=== PATIENT | female | born 1990 | race Caucasian/White ===

== ENCOUNTER 2017-07-09 02:16 | Inpatient (IN) | payer MEDICAID, OTHER ==
[~2017-07-09] VITALS: Ht 160 cm; Wt 49.4 kg
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
[2017-07-09] MEDS ORDERED: IV NS 0.9% 1,000 ML BAG IV ONE (02:30)
[2017-07-09] MEDS ORDERED: ONDANSETRON HCL/PF 4 MG/2 ML VIAL ONE (02:36)
[2017-07-09 02:40] LABS: BASOPHILS % (AUTO) 0.7 % (0.0-2.0); EOSINOPHILS % (AUTO) 9.4 % (0.0-6.0); HEMATOCRIT 38 % (33-45); HEMOGLOBIN 13.2 g/dL (11.5-14.8); LYMPHOCYTES # (AUTO) 1.9 /CMM (0.8-4.8); LYMPHOCYTES % (AUTO) 28.2 % (20.0-44.0); MEAN CORPUSCULAR HGB CONC 35 g/dl (31.0-36.0); MEAN CORPUSCULAR VOLUME 89 fL (82-100); MONOCYTES # (AUTO) 0.6 /CMM (0.1-1.30); MONOCYTES % (AUTO) 8.9 % (2.0-12.0); NEUTROPHILS # (AUTO) 3.5 /CMM (1.8-8.9); NEUTROPHILS % (AUTO) 52.8 % (43.0-81.0); PLATELET COUNT (AUTO) 204 /CMM (150-450); RED BLOOD CELL COUNT(AUTO) 4.23 MIL/uL (4.0-5.2); WHITE BLOOD COUNT (AUTO) 6.7 K/uL (4.3-11.0)
[2017-07-09 02:54] LABS: CALCIUM, SERUM 8.5 mg/dL (8.5-10.1); CREATININE 0.7 mg/dL (0.6-1.3); POTASSIUM 3.4 mmol/L (3.5-5.1)
[2017-07-09 03:00] LABS: ALBUMIN 3.8 g/dL (3.4-5.0); BILIRUBIN,DIRECT 0.1 mg/dL (0.0-0.2); BILIRUBIN,TOTAL 0.3 mg/dL (0.2-1.0)
[2017-07-09] MEDS ORDERED: ONDANSETRON HCL/PF - ER 4 MG/2 ML VIAL IV ONE (03:00)
--- NOTE | 2017-07-09 03:01 | NUR ---
I&O CATH DONE BY FEMALE FRANCINE KRUGER. URINE SAMPLE COLLECTED AND SENT TO LAB.
[2017-07-09 03:09] LABS: SALICYLATE 0.9 mg/dL (2.8-20.0)
[2017-07-09 03:45] LABS: APPEARANCE,URINE CLEAR (CLEAR); BILIRUBIN,URINE NEGATIVE (NEGATIVE); BLOOD, URINE 1+ Ery/uL (NEGATIVE); COLOR,URINE YELLOW (YELLOW); KETONES,URINE NEGATIVE (NEGATIVE); LEUKOCYTE ESTERASE ,URINE NEGATIVE (NEGATIVE); NITRITE, URINE NEGATIVE (NEGATIVE); PROTEIN,URINE NEGATIVE (NEGATIVE); UGLUCOSE NEGATIVE (NEGATIVE); UROBILINOGEN,URINE 0.2 EU/dL (0.2)
[2017-07-09 03:54] LABS: BACTERIA,URINE None seen /HPF (None Seen); SQUAMOUS EPITHELIAL CELL,UR Few /HPF (None Seen); WBC,URINE 0-2 /HPF (0-3)
--- NOTE | 2017-07-09 04:44 | NUR ---
TELE BED 108 S/P CHANGE OF SHIFT
--- NOTE | 2017-07-09 06:26 | NUR ---
PT REMAINS ASLEEP, NO ACUTE DISTRESS NOTED, RESP EVEN AND UNLABORED. CALL LIGHT WITHIN REACH. WILL CONTINUE TO MONITOR PT CLOSELY.
--- NOTE | 2017-07-09 07:08 | NUR ---
REPORT GIVEN TO AM SHIFT RN.
--- NOTE | 2017-07-09 07:42 | NUR ---
patient transported to tele. s
[2017-07-09 08:00] VITALS: BP 103/84
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
[2017-07-09] MEDS ORDERED: IV 1/2NS 1000 ML 1,000 ML IV PRN (08:30)
[2017-07-09] MEDS ORDERED: MAGNESIUM HYDROXIDE 30 ML UDC PO PRN (09:00)
[2017-07-09] MEDS ORDERED: Z GUARD REMEDY 2 OZ OINT TP PRN (09:00)
[2017-07-09] MEDS ORDERED: ACETAMINOPHEN 325 MG TABLET PO PRN (09:00)
[2017-07-09] MEDS ORDERED: ONDANSETRON HCL/PF 4 MG/2 ML VIAL IVP PRN (09:00)
[2017-07-09] MEDS ORDERED: HYDROCODONE/APAP 5/325MG 1 EACH TABLET PO PRN (09:00)
[2017-07-09] MEDS ORDERED: MAG HYDROX/AL HYDROX/SIMETH 30 ML UDC PO PRN (09:00)
[2017-07-09] MEDS ORDERED: ZOLPIDEM TARTRATE 5 MG TABLET PO PRN (09:00)
[2017-07-09] MEDS ORDERED: POTASSIUM CHLORIDE 20 MEQ TAB.PRT.SR PO ONE (10:30)
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
[2017-07-09 12:00] VITALS: BP 138/71
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
[2017-07-09 16:00] VITALS: BP 109/70
--- NOTE | 2017-07-09 18:32 | NUR ---
RN M/S CLOSING NOTE PATIENT RESTING COMFORTABLY IN BED, AOX3, DENIES ANY PAIN, ABLE TO MAKE NEEDS KNOWN. DENIES ANY CARDIAC OR RESPIRATORY DISTRESS. DUE FOR GYNECOLOGY AND SOCIAL SERVICE CONSULT. WILL ENDORSE TO PM NURSE FOR CONTINUITY OF CARE.
--- NOTE | 2017-07-09 19:10 | NUR ---
RN OPENING NOTE RECEIVED PATIENT IN BED, ALERT AND ORIENTED, VERBALLY RESPONSIVE, NO SOB NOTED, NO C/O PAIN, IN NO ACUTE DISTRESS. CONTINUES TO RECEIVE IVF ORDERED. WILL CONTINUE TO MONITOR.
[2017-07-09] MEDS: IV 1/2NS 1000 ML 1,000 ML IV PRN (19:32)
[2017-07-09 20:00] VITALS: BP 108/69
[2017-07-10 04:00] VITALS: BP 110/72
--- NOTE | 2017-07-10 06:22 | NUR ---
MS RN CLOSING NOTES PATIENT AWAKE IN BED, ALERT AND ORIENTED X 3, VERBALLY RESPONSIVE, NO SOB, BREATHING EVEN AND UNLABORED IN ROOM AIR, REMAINS TO BE IN NO ACUTE DISTRESS. ALL PATIENT'S NEEDS ATTENDED TO THROUGHOUT THE SHIFT. CONTINUES TO RECEIVE IVF ORDERED VIA IV PERIPHERAL LINE ON RAC G#[id number]. PLACED BED IN LOW POSITION, LOCKED IN PLACE. PATIENT IS AWARE OF SAFETY NEEDS. CALL LIGHT WITHIN EASY REACH. WILL ENDORSE TO AM SHIFT NURSE FOR CONTINUITY OF CARE.
[2017-07-10 06:35] LABS: BASOPHILS % (AUTO) 0.5 % (0.0-2.0); EOSINOPHILS % (AUTO) 8.3 % (0.0-6.0); HEMATOCRIT 36 % (33-45); HEMOGLOBIN 12.5 g/dL (11.5-14.8); LYMPHOCYTES # (AUTO) 2.4 /CMM (0.8-4.8); LYMPHOCYTES % (AUTO) 44.7 % (20.0-44.0); MEAN CORPUSCULAR HGB CONC 35 g/dl (31.0-36.0); MEAN CORPUSCULAR VOLUME 91 fL (82-100); MONOCYTES # (AUTO) 0.5 /CMM (0.1-1.30); NEUTROPHILS # (AUTO) 1.9 /CMM (1.8-8.9); NEUTROPHILS % (AUTO) 36.5 % (43.0-81.0); PLATELET COUNT (AUTO) 178 /CMM (150-450); RDW COEFFICIENT OF VARIATION 12.9 (11.5-15.0); RED BLOOD CELL COUNT(AUTO) 3.99 MIL/uL (4.0-5.2); WHITE BLOOD COUNT (AUTO) 5.3 K/uL (4.3-11.0)
[2017-07-10 06:40] LABS: CREATININE 0.6 mg/dL (0.6-1.3); MAGNESIUM 1.8 mg/dL (1.8-2.4); PHOSPHORUS 4.1 mg/dL (2.5-4.9); POTASSIUM 4.1 mmol/L (3.5-5.1)
[2017-07-10 08:00] VITALS: BP 115/74
[2017-07-10] MEDS: IV 1/2NS 1000 ML 1,000 ML IV PRN (09:36)
[2017-07-10] MEDS ORDERED: ONDANSETRON 4 MG TAB.RAPDIS PO PRN (12:00)
[2017-07-10 12:30] VITALS: BP 118/78
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
== END 2017-07-10 13:50 | disposition home or self-care (01) | DRG 917 ==
LOC: ER 02:19 → TELE1 05:58 → MEDSG1 13:33
PROVIDERS: ADMIT Nurse Practitioner Acute Care; ATTEND Nurse Practitioner Acute Care
DX: T42.4X2A Poisoning by benzodiazepines, intentional self-harm, initial encounter (principal); G92 Toxic encephalopathy; T51.92XA Toxic effect of unspecified alcohol, intentional self-harm, initial encounter; Y92.009 Unspecified place in unspecified non-institutional (private) residence as the place of occurrence of the external cause; F41.9 Anxiety disorder, unspecified; E87.6 Hypokalemia; F32.9 Major depressive disorder, single episode, unspecified; F10.129 Alcohol abuse with intoxication, unspecified
CPT/HCPCS: 36415; 70450-TC; 80048-TC; 80061-TC; 80076-TC; 80305; 81000-TC; 82550-TC; 83735-TC; 84100-TC; 84703-TC; 85025-TC; 87081-TC; A4606; G0480; J2405; J3490; J7030; Z7610

== ENCOUNTER 2017-12-15 07:51 | Emergency (ER) | payer SELFPAY ==
[~2017-12-15] VITALS: Ht 160 cm; Wt 45.4 kg
[2017-12-15 07:51] VITALS: BP 133/99
[2017-12-15 08:25] LABS: APPEARANCE,URINE SL CLOUDY (CLEAR); BILIRUBIN,URINE NEGATIVE (NEGATIVE); BLOOD, URINE 2+ Ery/uL (NEGATIVE); COLOR,URINE YELLOW (YELLOW); KETONES,URINE NEGATIVE (NEGATIVE); LEUKOCYTE ESTERASE ,URINE NEGATIVE (NEGATIVE); NITRITE, URINE NEGATIVE (NEGATIVE); PROTEIN,URINE NEGATIVE (NEGATIVE); UGLUCOSE NEGATIVE (NEGATIVE); UROBILINOGEN,URINE 0.2 EU/dL (0.2)
[2017-12-15 08:42] LABS: BACTERIA,URINE Rare /HPF (None Seen); MUCUS,URINE Few /LPF (None Seen); SQUAMOUS EPITHELIAL CELL,UR Few /HPF (None Seen); WBC,URINE NONE SEEN /HPF (0-3)
== END 2017-12-15 08:52 | disposition home or self-care (01) ==
LOC: ER 07:52
DX: K62.3 Rectal prolapse (principal); F41.9 Anxiety disorder, unspecified; F32.9 Major depressive disorder, single episode, unspecified
CPT/HCPCS: 81001; 84703; 99284; A4606; Z7610; 81000-TC